=== PATIENT | male | born 1980 | race Native Hawaiian/Other Pacific Islander ===

== ENCOUNTER 2019-03-21 13:43 | Emergency (ER) | payer OTHER ==
[~2019-03-21] VITALS: Ht 175.3 cm; Wt 117.9 kg
[2019-03-21 13:56] VITALS: TEMP 98.1
[2019-03-21 14:29] LABS: PLATELET COUNT 218 K/uL (142-355); POTASSIUM 4.2 mmol/L (3.6-5.2); SODIUM 140 mmol/L (136-145)
[2019-03-21 14:59] VITALS: BP 121/65
== END 2019-03-21 15:00 | disposition home or self-care (01) ==
LOC: ED 13:43
PROVIDERS: Emergency Medicine
DX: R07.89 Other chest pain (principal)
CPT/HCPCS: 80053; 82550; 82553; 84484; 85027; 93005; 99283